=== PATIENT | female | born 1970 | race American Indian/Alaskan Native ===

== ENCOUNTER 2020-02-01 06:23 | Emergency (ER) | payer SELFPAY ==
--- NOTE | 2020-02-01 08:45 | Emergency Department Report ---
Chief Complaint: Dental/Oral Stated Complaint: ABSCESS IN MY JAW Time Seen by Provider: 02/01/20 08:30 - HPI History of Present Illness: The patient is a 49-year-old male who presents to ED complaining of 10/10 pain in the right side of his mouth x 2 days . Patient states that the pain started 5 days ago and has increased in severity over the last 2-3 days. The pain is exacerbated by eating and opening of the mouth. Patient states that swelling noted yesterday and pain is gotten worse Patient states that it radiates towards ear. Patient describes pain a throbbing, pressure-like sensation. Patient states otherwise well and has no other complaints. Patient has had no fevers and no chills. No chest pain, no shortness of breath. No abdominal pain. No shortness of breath or recent trauma to the face. - ROS Review of Systems: As noted in HPI - Exam Physical Exam: GENERAL: Alert and oriented x3, no apparent distress, Normal Gait, atraumatic. EARS: symetrical, atraumatic, non tender, ear canal clear and moderate cerumen, tympanic membrance non inflamed. gross auditory nml bilaterally. MOUTH:Mouth is well hydrated and without lesions. Tonsils nonerythematous or swollen, Uvula midline, Tongue not elevated. Mucous membranes are moist. Posterior pharynx clear, no exudate or lesions. Patent airways. Right lower jaw swelling, tender to palpation. Gingival enlargement and tenderness to tooth #29 NECK: Supple. Non edematous. No lymphadenopathy or thyromegaly. No C-spine tenderness SKIN: Warm and dry, No lesions, No ulceration or induration present. MSE screening note: Focused history and physical exam performed. Due to findings the following was ordered: ED Medical Decision Making - Medical Decision Making 31-year-old female who presents with left-sided Facial pain secondary to odontogenic abscess to the right ED course: Odontogenic infection versus ear infection. Based upon history and physical examination, pain is a result of an infection of tooth number 29 and that the pain Pt feels on the right side of his face and towards the ear is referred pain from this infectious process. Pt has no evidence of acute impending airway compromise. At this point, patient will be discharged home on some antibiotics and pain trial, she will do well with an outpatient course of antibiotics. Follow up with the Dental Clinic as referred Vital signs are normal patient is in no acute distress. Pt had an effect uneventful ED stay ED Disposition for MSE Clinical Impression: Dental abscess, Pain, dental Disposition: TO HOME OR SELFCARE Is pt being admited?: No Does the pt Need Aspirin: No Condition: Stable Instructions: Dental Abscess (ED), Toothache (ED) Additional Instructions: Make sure to follow up with the dentist as discussed. Take all your medications as you've been prescribed. If you have any worsening symptoms or develop new symptoms please return to ED immediately. Prescriptions: Clindamycin [Clindamycin CAP] 300 mg PO Q8H 7 Days #21 cap Ibuprofen [Motrin 800 MG tab] 800 mg PO Q8HR PRN #30 tablet PRN Reason: Pain Referrals: PRIMARY CARE, [Primary Care Provider] - 3-5 Days [facility] [Outside] - 3-5 Days [facility] [Outside] - 3-5 Days Forms: Work/School Release Form(ED) Time of Disposition: 09:02
[2020-02-01 09:26] VITALS: BP 219/97
== END 2020-02-01 09:25 | disposition home or self-care (01) ==
LOC: ED 06:23
DX: K04.7 Periapical abscess without sinus (principal)
CPT/HCPCS: 99282

== ENCOUNTER 2020-11-18 15:46 | Emergency (ER) | payer SELFPAY ==
[2020-11-18 16:37] VITALS: BP 198/97
--- NOTE | 2020-11-18 19:09 | Emergency Department Report ---
Blank Doc - Documentation Documentation: 50-year-old female that presents with RLQ pain. This initial assessment/diagnostic orders/clinical plan/treatment(s) is/are subject to change based on patient's health status, clinical progression and re- assessment by fellow clinical providers in the ED. Further treatment and workup at subsequent clinical providers discretion. Patient/guardians urged not to elope from the ED as their condition may be serious if not clinically assessed and managed. Initial orders include: 1- Patient sent to [facility] for further evaluation and treatment 2- labs 3- UA
== END 2020-11-19 01:37 ==
LOC: ED 15:46
DX: R10.9 Unspecified abdominal pain (principal); Z53.21 Procedure and treatment not carried out due to patient leaving prior to being seen by health care provider

== ENCOUNTER 2020-11-20 00:56 | Inpatient (IN) | payer OTHER ==
[2020-11-20] MEDS ORDERED: ONDANSETRON 4 MG ODT TAB ONE ×2 (01:48→03:21)
[2020-11-20] MEDS ORDERED: ONDANSETRON 4 MG ODT TAB PO ONE (03:50)
[2020-11-20 05:25] LABS: Hemoglobin 14.2 gm/dl (10.1-14.3)
[2020-11-20 05:27] LABS: BUN/Creatinine Ratio 13; Blood Urea Nitrogen 9 mg/dL (7-17); Calcium 10.1 mg/dL (8.4-10.2); Hemolysis Index 2
[2020-11-20 05:28] LABS: Hematocrit 41.1 % (30.3-42.9); Mean Corpuscular HGB Conc 35 % (30-34); Mean Corpuscular Volume 90 fl (79-97); Platelet Count 429 K/mm3 (140-440); Red Blood Count 4.55 M/mm3 (3.65-5.03); Red Cell Distribution Width 15.4 % (13.2-15.2)
[2020-11-20 06:23] LABS: Ovalocytes Rare; Platelet Estimate Consistent w Auto; Total Cells Counted 100
[2020-11-20] MEDS ORDERED: SODIUM CHLORIDE 0.9% 1000 ML 1,000 ML IV ONE ×2 (10:48→14:44)
--- NOTE | 2020-11-20 10:52 | Emergency Department Report ---
ED Abdominal Pain HPI - General Chief Complaint: Nausea/Vomiting/Diarrhea Stated Complaint: FOOD POISONING/VOMITING Time Seen by Provider: 11/20/20 10:47 Source: patient Mode of arrival: Ambulatory Limitations: No Limitations - History of Present Illness Initial Comments: Patient is a 42-year-old female presents emergency room complaints of generalized abdominal pain that began 2 days ago. She has associated nausea vomiting and is unable to tolerate p.o. intake. She states she had a normal bowel movement 2 days ago. She denies any diarrhea, hematochezia, hematemesis, urinary symptoms. She believes that she may have eaten something bad but no one else is sick around her. She denies any past medical history. She states she has a past abdominal: Surgical history of tubal ligation. Last menstrual cycle 10/19/2020. - Related Data Previous Rx's Medication Instructions Recorded Last Taken Type Clindamycin [Clindamycin CAP] 300 mg PO Q8H 7 Days #21 cap 02/01/20 Unknown Rx Ibuprofen [Motrin 800 MG tab] 800 mg PO Q8HR PRN #30 tablet 02/01/20 Unknown Rx Allergies Allergy/AdvReac Type Severity Reaction Status Date / Time No Known Allergies Allergy Verified 02/16/16 22:05 ED Review of Systems ROS: Stated complaint: FOOD POISONING/VOMITING Other details as noted in HPI Comment: All other systems reviewed and negative ED Past Medical Hx - Past Medical History Previous Medical History?: No - Surgical History Past Surgical History?: Yes Additional Surgical History: tubal ligation - Social History Smoking Status: Current Every Day Smoker Substance Use Type: None - Medications Home Medications: Home Medications Medication Instructions Recorded Confirmed Last Taken Type Clindamycin [Clindamycin CAP] 300 mg PO Q8H 7 Days #21 cap 02/01/20 Unknown Rx Ibuprofen [Motrin 800 MG tab] 800 mg PO Q8HR PRN #30 tablet 02/01/20 Unknown Rx ED Physical Exam - General Limitations: No Limitations General appearance: alert, in no apparent distress - Head Head exam: Present: atraumatic, normocephalic - Eye Eye exam: Present: normal appearance - ENT ENT exam: Present: mucous membranes moist - Respiratory Respiratory exam: Present: normal lung sounds bilaterally. Absent: respiratory distress, wheezes, rales, rhonchi, stridor, chest wall tenderness, accessory muscle use, decreased breath sounds, prolonged expiratory - Cardiovascular Cardiovascular Exam: Present: normal rhythm, tachycardia (mildly), normal heart sounds. Absent: systolic murmur, diastolic murmur, rubs, gallop - GI/Abdominal GI/Abdominal exam: Present: soft, tenderness (generalized), normal bowel sounds. Absent: distended, guarding, rebound, rigid - Neurological Exam Neurological exam: Present: alert, oriented X3 - Psychiatric Psychiatric exam: Present: normal affect, normal mood - Skin Skin exam: Present: warm, dry, intact ED Course Vital Signs 11/20/20 11/20/20 11/20/20 03:29 15:11 16:51 Temperature 98.5 F 98.6 F Pulse Rate 106 H 124 H 119 H Respiratory 18 18 Rate Blood Pressure 122/74 199/87 Blood Pressure 233/94 [Right] O2 Sat by Pulse 97 96 Oximetry - Consultations Consultation #1: 11/20/[address] Gross, ER attending who advised to order CBC and lactic acid and to repeat patient's vitals On repeat her white count has increased and she is still tachycardic, Dr. Gross, ER attending advises admission 11/20/20 15:[address] Bay, hospitalist who will accept and resume care of patient, advised to bridge to [facility] ED Medical Decision Making - Lab Data Result diagrams: 11/20/20 14:27 11/20/20 04:32 Lab Results 11/20/20 11/20/20 11/20/20 Range/Units 04:32 04:32 04:32 WBC 22.8 H (4.5-11.0) K/mm3 RBC 4.55 (3.65-5.03) M/mm3 Hgb 14.2 (10.1-14.3) gm/dl Hct 41.1 (30.3-42.9) % MCV 90 (79-97) fl MCH 31 (28-32) pg MCHC 35 H (30-34) % RDW 15.4 H (13.2-15.2) % Plt Count 429 (140-440) K/mm3 Add Manual Diff Complete Total Counted 100 Seg Neuts % (Manual) 88.0 H (40.0-70.0) % Lymphocytes % (Manual) 6.0 L (13.4-35.0) % Monocytes % (Manual) 6.0 (0.0-7.3) % Nucleated RBC % Not Reportable Seg Neutrophils # Man 20.1 H (1.8-7.7) K/mm3 Band Neutrophils # 0.0 K/mm3 Lymphocytes # (Manual) 1.4 (1.2-5.4) K/mm3 Abs React Lymphs (Man) 0.0 K/mm3 Monocytes # (Manual) 1.4 H (0.0-0.8) K/mm3 Eosinophils # (Manual) 0.0 (0.0-0.4) K/mm3 Basophils # (Manual) 0.0 (0.0-0.1) K/mm3 Metamyelocytes # 0.0 K/mm3 Myelocytes # 0.0 K/mm3 Promyelocytes # 0.0 K/mm3 Blast Cells # 0.0 K/mm3 WBC Morphology Not Reportable Hypersegmented Neuts Not Reportable Hyposegmented Neuts Not Reportable Hypogranular Neuts Not Reportable Smudge Cells Not Reportable Toxic Granulation Not Reportable Toxic Vacuolation Not Reportable Dohle Bodies Not Reportable Pelger-Huet Anomaly Not Reportable Percy Rods Not Reportable Platelet Estimate Consistent w auto Clumped Platelets Not Reportable Plt Clumps, EDTA Not Reportable Large Platelets Not Reportable Giant Platelets Not Reportable Platelet Satelliting Not Reportable Plt Morphology Comment Not Reportable RBC Morphology Not Reportable Dimorphic RBCs Not Reportable Polychromasia Not Reportable Hypochromasia Not Reportable Poikilocytosis Not Reportable Anisocytosis Not Reportable Microcytosis Not Reportable Macrocytosis Not Reportable Spherocytes Not Reportable Pappenheimer Bodies Not Reportable Sickle Cells Not Reportable Target Cells Not Reportable Tear Drop Cells Not Reportable Ovalocytes Rare Helmet Cells Not Reportable Child-[place] Bodies Not Reportable [place] Rings Not Reportable Charlene Cells Not Reportable Bite Cells Not Reportable Crenated Cell Not Reportable Elliptocytes Not Reportable Acanthocytes (Spur) Not Reportable Rouleaux Not Reportable Hemoglobin C Crystals Not Reportable Schistocytes Not Reportable Malaria parasites Not Reportable Raudel Bodies Not Reportable Hem Pathologist Commnt No Sodium 137 (137-145) mmol/L Potassium 3.2 L (3.6-5.0) mmol/L Chloride 98.7 (98-107) mmol/L Carbon Dioxide 23 (22-30) mmol/L Anion Gap 19 mmol/L BUN 9 (7-17) mg/dL Creatinine 0.7 (0.6-1.2) mg/dL Estimated GFR > 60 ml/min BUN/Creatinine Ratio 13 % Glucose 171 H (65-100) mg/dL Lactic Acid (0.7-2.0) mmol/L Calcium 10.1 (8.4-10.2) mg/dL Total Bilirubin (0.1-1.2) mg/dL Direct Bilirubin (0-0.2) mg/dL Indirect Bilirubin mg/dL AST (5-40) units/L ALT (7-56) units/L Alkaline Phosphatase (35-129) units/L Total Protein (6.3-8.2) g/dL Albumin (3.9-5) g/dL Albumin/Globulin Ratio % Lipase (13-60) units/L HCG, Qual Negative (Negative) 11/20/20 11/20/20 11/20/20 Range/Units 11:05 14:27 14:27 WBC 26.0 H (4.5-11.0) K/mm3 RBC 4.76 (3.65-5.03) M/mm3 Hgb 14.5 H (10.1-14.3) gm/dl Hct 43.5 H (30.3-42.9) % MCV 91 (79-97) fl MCH 30 (28-32) pg MCHC 33 (30-34) % RDW 15.3 H (13.2-15.2) % Plt Count 367 (140-440) K/mm3 Add Manual Diff Total Counted Seg Neuts % (Manual) (40.0-70.0) % Lymphocytes % (Manual) (13.4-35.0) % Monocytes % (Manual) (0.0-7.3) % Nucleated RBC % Seg Neutrophils # Man (1.8-7.7) K/mm3 Band Neutrophils # K/mm3 Lymphocytes # (Manual) (1.2-5.4) K/mm3 Abs React Lymphs (Man) K/mm3 Monocytes # (Manual) (0.0-0.8) K/mm3 Eosinophils # (Manual) (0.0-0.4) K/mm3 Basophils # (Manual) (0.0-0.1) K/mm3 Metamyelocytes # K/mm3 Myelocytes # K/mm3 Promyelocytes # K/mm3 Blast Cells # K/mm3 WBC Morphology Hypersegmented Neuts Hyposegmented Neuts Hypogranular Neuts Smudge Cells Toxic Granulation Toxic Vacuolation Dohle Bodies Pelger-Huet Anomaly Percy Rods Platelet Estimate Clumped Platelets Plt Clumps, EDTA Large Platelets Giant Platelets Platelet Satelliting Plt Morphology Comment RBC Morphology Dimorphic RBCs Polychromasia Hypochromasia Poikilocytosis Anisocytosis Microcytosis Macrocytosis Spherocytes Pappenheimer Bodies Sickle Cells Target Cells Tear Drop Cells Ovalocytes Helmet Cells Child-Plaqu[place] Bodies [place] Rings Charlene Cells Bite Cells Crenated Cell Elliptocytes Acanthocytes (Spur) Rouleaux Hemoglobin C Crystals Schistocytes Malaria parasites Raudel Bodies Hem Pathologist Commnt Sodium (137-145) mmol/L Potassium (3.6-5.0) mmol/L Chloride (98-107) mmol/L Carbon Dioxide (22-30) mmol/L Anion Gap mmol/L BUN (7-17) mg/dL Creatinine (0.6-1.2) mg/dL Estimated GFR ml/min BUN/Creatinine Ratio % Glucose (65-100) mg/dL Lactic Acid 1.30 (0.7-2.0) mmol/L Calcium (8.4-10.2) mg/dL Total Bilirubin 0.60 (0.1-1.2) mg/dL Direct Bilirubin < 0.2 (0-0.2) mg/dL Indirect Bilirubin 0.4 mg/dL AST 13 (5-40) units/L ALT 9 (7-56) units/L Alkaline Phosphatase 105 (35-129) units/L Total Protein 9.4 H (6.3-8.2) g/dL Albumin 4.1 (3.9-5) g/dL Albumin/Globulin Ratio 0.8 % Lipase 38 (13-60) units/L HCG, Qual (Negative) Vital Signs 11/20/20 11/20/20 11/20/20 03:29 15:11 16:51 Temperature 98.5 F 98.6 F Pulse Rate 106 H 124 H 119 H Respiratory 18 18 Rate Blood Pressure 122/74 199/87 Blood Pressure 233/94 [Right] O2 Sat by Pulse 97 96 Oximetry - Radiology Data Radiology results: report reviewed CT abdomen pelvis with IV contrast Impression: Question very early right pyelonephritis. These findings are very subtle. Correlate imaging Radiologist Rodri Hamm Jr, MD - Medical Decision Making Patient is a 42-year-old female presents emergency room complaints of generalized abdominal pain that began 2 days ago. She has associated nausea vomiting and is unable to tolerate p.o. intake. She states she had a normal bowel movement 2 days ago. She denies any diarrhea, hematochezia, hematemesis, urinary symptoms. She believes that she may have eaten something bad but no one else is sick around her. She denies any past medical history. She states she has a past abdominal: Surgical history of tubal ligation. Last menstrual cycle 10/19/2020. Initial triage vitals with mild tachycardia, otherwise stable. On exam patient has generalized abdominal tenderness palpation, no guarding, rebound, no rigidity, normal bowel sounds, no peritoneal signs. Lab significant for elevated white blood cell count at 22,000 and hypokalemia at 3.2. UA shows evidence of significant UTI. CT abdomen pelvis with IV contrast Impression: Question very early right pyelonephritis. These findings are very subtle. Correlate imaging. Patient given 2 L of IV fluids, K-Dur, morphine, Zofran, ceftriaxone. Spoke with Dr. Gross, ER attending who advised to order CBC and lactic acid and to repeat patient's vitals. On repeat her white count has increased and she is still tachycardic, Dr. Gross, ER attending advises admission. Patient is also significantly hypertensive, given labetalol IV. spoke with Dr. Bay, hospitalist who will accept and resume care of patient, advised to bridge to [facility] - Differential Diagnosis Colitis, diverticulitis, UTI, pyelonephritis, obstruction, mass, appendicit Critical care attestation.: If time is entered above; I have spent that time in minutes in the direct care of this critically ill patient, excluding procedure time. ED Disposition Clinical Impression: Pyelonephritis, SIRS (systemic inflammatory response syndrome), Hypokalemia Abdominal pain Qualifiers: Abdominal location: generalized Qualified Code(s): R10.84 - Generalized abdominal pain Nausea and vomiting Qualifiers: Vomiting type: unspecified Vomiting Intractability: unspecified Qualified Code(s): R11.2 - Nausea with vomiting, unspecified Uterine fibroid Qualifiers: Uterine leiomyoma location: unspecified location Qualified Code(s): D25.9 - Leiomyoma of uterus, unspecified HTN (hypertension) Qualifiers: Hypertension type: unspecified Qualified Code(s): I10 - Essential (primary) hypertension Disposition: 09 OP ADMIT IP TO THIS HOSP Is pt being admited?: Yes Does the pt Need Aspirin: No Condition: Fair Time of Disposition: 15:45
[2020-11-20] MEDS: MORPHINE 4 MG/1 ML INJ IV ONE ×2 (11:00→11:01)
[2020-11-20] MEDS: ONDANSETRON 4 MG/2 ML INJ IV ONE ×2 (11:01→22:58)
[2020-11-20 11:48] LABS: Alanine Aminotransferase 9 units/L (7-56); Albumin 4.1 g/dL (3.9-5)
[2020-11-20 11:49] LABS: Bilirubin,Direct < 0.2 mg/dL (0-0.2)
--- NOTE | 2020-11-20 12:20 | Cat Scan Report ---
CT ABDOMEN AND PELVIS WITH CONTRAST HISTORY: generalized abd pain, n/v, leukocytosis COMPARISON: None. TECHNIQUE: Axial CT images were obtained through the abdomen and pelvis after 100 cc of IV contrast. Sagittal and coronal reformatted images. All CT scans at this location are performed using CT dose re duction for ALARA by means of automated exposure control. FINDINGS: CT ABDOMEN: Lung Bases: Clear. Liver: The liver appears mildly enlarged but no evidence for focal lesion, advanced parenchymal disea se or surface nodularity. Biliary: No significant abnormality. Spleen: No significant abnormality. Unenlarged. Pancreas: No significant abnormality. Adrenals: No significant abnormality. Kidneys: Both kidneys are normal size, contour and position. Very subtle small perfusion defects are suggested in the right kidney. This could indicate early pyelonephritis. No focal renal lesion, hydro nephrosis or perinephric fluid. Lymphatics: No lymphadenopathy. Vasculature: No significant abnormality. Bowel/Peritoneum: No significant abnormality. No free air. No free fluid. Normal appendix. CT PELVIS: : The uterus is mildly enlarged and lobular with multiple small fibroids. A 1.6 cm peripherally enh ancing cyst is identified in the left ovary. The right ovary is unremarkable. The bladder and distal ureters are within normal limits. Osseous Structures: There is been previous internal stabilization of the proximal right femur, correl ate with history. The remaining visualized bony structures are unremarkable. Additional Findings: None IMPRESSION: Question very early right pyelonephritis. These findings are very subtle. Correlate with the patient' s presentation. Mild hepatomegaly. Uterine fibroid disease. 1.6 cm left ovarian cyst. Signer Name: Rodri Hamm Jr, MD Signed: 11/20/2020 12:16 PM Workstation Name: [id number]
[2020-11-20] MEDS ORDERED: cefTRIAXone/NS 1 GM/50 ML 1 GM/50 ML BAG IV ONE (12:34)
[2020-11-20 12:56] LABS: Bacteria,Urine 1+ /HPF (Negative); Bilirubin,Urine NEG (Negative); Blood,Urine MOD (Negative); Color,Urine Yellow (Yellow); Mucus,Urine FEW /HPF; Protein,Urine >500 mg/dL (Negative); Urobilinogen,Urine < 2.0 mg/dL (<2.0); WBC,Urine > 182.0 /HPF (0.0-6.0)
[2020-11-20] MEDS ORDERED: POTASSIUM CHLORIDE ER 20 MEQ TAB PO ONE (13:12)
[2020-11-20 14:39] LABS: Hematocrit 43.5 % (30.3-42.9); Hemoglobin 14.5 gm/dl (10.1-14.3); Mean Corpuscular HGB Conc 33 % (30-34); Mean Corpuscular Volume 91 fl (79-97); Platelet Count 367 K/mm3 (140-440); Red Blood Count 4.76 M/mm3 (3.65-5.03); Red Cell Distribution Width 15.3 % (13.2-15.2)
[2020-11-20] MEDS ORDERED: ONDANSETRON 4 MG/2 ML INJ IV ONE (14:56)
[2020-11-20] MEDS ORDERED: ONDANSETRON 4 MG/2 ML INJ ONE (18:01)
[2020-11-20] MEDS: ONDANSETRON 4 MG/2 ML INJ IV PRN (18:13)
[2020-11-20] MEDS ORDERED: hydrALAZINE 20 MG/1 ML INJ IV ONE (22:41)
--- NOTE | 2020-11-21 00:35 | History and Physical Report ---
History of Present Illness Date of examination: 11/20/20 Date of admission: 11/20/20 15:46 Chief complaint: Vomiting for 2 days History of present illness: 42-year-old female with no significant past medical history has been having right flank pain and vomiting for 2 days. Unable to tolerate anything orally. Patient had a normal bowel movement 2 days ago. No diarrhea. No hematochezia. No hematemesis. Pain in the abdomen in the right flank is about 6 on a scale of 1-10 which is intermittent in nature. Low-grade fever present. No exposure to coronavirus. - Past Medical History Previous Medical History?: No - Surgical History Past Surgical History?: Yes Additional Surgical History: tubal ligation - Social History Smoking Status: Current Every Day Smoker Substance Use Type: None - Medications Home Medications: Home Medications Medication Instructions Recorded Confirmed Last Taken Type Clindamycin [Clindamycin CAP] 300 mg PO Q8H 7 Days #21 cap 02/01/20 Unknown Rx Ibuprofen [Motrin 800 MG tab] 800 mg PO Q8HR PRN #30 tablet 02/01/20 Unknown Rx Review of Systems ROS: Constitutional no weight loss or weight gain no fever or chills HEENT no sore throat no post nasal drip no diplopia Neck no neck stiffness no lymph gland enlargement Chest and lungs no shortness of breath cough or wheezing CVS no chest pain no diaphoresis no palpitations GI right flank pain with nausea and vomiting for 2 days. Persistent vomiting. Musculoskeletal system no muscle pains no joint pains [employer] no syncope no seizures Skin no rash no itching Psychiatric no depression no homicidal or suicidal tendencies Hematologic no lymphedema or bruising Endocrine no polydipsia no polyuria no cold intolerance no heat intolerance Medications and Allergies Allergies Allergy/AdvReac Type Severity Reaction Status Date / Time No Known Allergies Allergy Verified 02/16/16 22:05 Home Medications Medication Instructions Recorded Confirmed Last Taken Type Clindamycin [Clindamycin CAP] 300 mg PO Q8H 7 Days #21 cap 02/01/20 Unknown Rx Ibuprofen [Motrin 800 MG tab] 800 mg PO Q8HR PRN #30 tablet 02/01/20 Unknown Rx Active Meds: Active Medications Ceftriaxone Sodium (Rocephin/Ns 2 Gm/100 Ml) 2 gm in 100 mls @ 200 mls/hr IV Q24H [facility]; Protocol Ondansetron HCl (Ondansetron 4 Mg/2 Ml Inj) 4 mg IV Q8H PRN PRN Reason: Nausea And Vomiting Last Admin: 11/20/20 18:13 Dose: 4 mg Documented by: Exam - Constitutional Vitals: Temp Pulse Resp BP Pulse Ox 100.4 F H 129 H 14 161/86 94 11/21/20 00:30 11/21/20 00:30 11/21/20 00:30 11/21/20 00:30 11/21/20 00:30 General appearance: Present: no acute distress, well-nourished - EENT Eyes: Present: PERRL ENT: hearing intact, clear oral mucosa - Neck Neck: Present: supple, normal ROM - Respiratory Respiratory effort: normal Respiratory: bilateral: CTA - Cardiovascular Rhythm: regular Heart Sounds: Present: S1 & S2. Absent: rub, click - Extremities Extremities: pulses symmetrical, No edema Peripheral Pulses: within normal limits - Abdominal General gastrointestinal: Present: soft, non-tender, tender, non-distended, normal bowel sounds Localized gastrointestinal: tender: RLQ (Right flank pain) Female genitourinary: Present: normal - Integumentary Integumentary: Present: clear, warm, dry - Musculoskeletal Musculoskeletal: gait normal, strength equal bilaterally - Psychiatric Psychiatric: appropriate mood/affect, intact judgment & insight - Neurologic Neurologic: CNII-XII intact, moves all extremities Results - Labs CBC & Chem 7: 11/20/20 14:27 11/20/20 04:32 Labs: Laboratory Last Values WBC 26.0 K/mm3 (4.5-11.0) H 11/20/20 14:27 RBC 4.76 M/mm3 (3.65-5.03) 11/20/20 14:27 Hgb 14.5 gm/dl (10.1-14.3) H 11/20/20 14:27 Hct 43.5 % (30.3-42.9) H 11/20/20 14:27 MCV 91 fl (79-97) 11/20/20 14:27 MCH 30 pg (28-32) 11/20/20 14:27 MCHC 33 % (30-34) 11/20/20 14:27 RDW 15.3 % (13.2-15.2) H 11/20/20 14:27 Plt Count 367 K/mm3 (140-440) 11/20/20 14:27 Add Manual Diff Complete 11/20/20 04:32 Total Counted 100 11/20/20 04:32 Seg Neuts % (Manual) 88.0 % (40.0-70.0) H 11/20/20 04:32 Lymphocytes % (Manual) 6.0 % (13.4-35.0) L 11/20/20 04:32 Monocytes % (Manual) 6.0 % (0.0-7.3) 11/20/20 04:32 Nucleated RBC % Not Reportable 11/20/20 04:32 Seg Neutrophils # Man 20.1 K/mm3 (1.8-7.7) H 11/20/20 04:32 Band Neutrophils # 0.0 K/mm3 11/20/20 04:32 Lymphocytes # (Manual) 1.4 K/mm3 (1.2-5.4) 11/20/20 04:32 Abs React Lymphs (Man) 0.0 K/mm3 11/20/20 04:32 Monocytes # (Manual) 1.4 K/mm3 (0.0-0.8) H 11/20/20 04:32 Eosinophils # (Manual) 0.0 K/mm3 (0.0-0.4) 11/20/20 04:32 Basophils # (Manual) 0.0 K/mm3 (0.0-0.1) 11/20/20 04:32 Metamyelocytes # 0.0 K/mm3 11/20/20 04:32 Myelocytes # 0.0 K/mm3 11/20/20 04:32 Promyelocytes # 0.0 K/mm3 11/20/20 04:32 Blast Cells # 0.0 K/mm3 11/20/20 04:32 WBC Morphology Not Reportable 11/20/20 04:32 Hypersegmented Neuts Not Reportable 11/20/20 04:32 Hyposegmented Neuts Not Reportable 11/20/20 04:32 Hypogranular Neuts Not Reportable 11/20/20 04:32 Smudge Cells Not Reportable 11/20/20 04:32 Toxic Granulation Not Reportable 11/20/20 04:32 Toxic Vacuolation Not Reportable 11/20/20 04:32 Dohle Bodies Not Reportable 11/20/20 04:32 Pelger-Huet Anomaly Not Reportable 11/20/20 04:32 Percy Rods Not Reportable 11/20/20 04:32 Platelet Estimate Consistent w auto 11/20/20 04:32 Clumped Platelets Not Reportable 11/20/20 04:32 Plt Clumps, EDTA Not Reportable 11/20/20 04:32 Large Platelets Not Reportable 11/20/20 04:32 Giant Platelets Not Reportable 11/20/20 04:32 Platelet Satelliting Not Reportable 11/20/20 04:32 Plt Morphology Comment Not Reportable 11/20/20 04:32 RBC Morphology Not Reportable 11/20/20 04:32 Dimorphic RBCs Not Reportable 11/20/20 04:32 Polychromasia Not Reportable 11/20/20 04:32 Hypochromasia Not Reportable 11/20/20 04:32 Poikilocytosis Not Reportable 11/20/20 04:32 Anisocytosis Not Reportable 11/20/20 04:32 Microcytosis Not Reportable 11/20/20 04:32 Macrocytosis Not Reportable 11/20/20 04:32 Spherocytes Not Reportable 11/20/20 04:32 Pappenheimer Bodies Not Reportable 11/20/20 04:32 Sickle Cells Not Reportable 11/20/20 04:32 Target Cells Not Reportable 11/20/20 04:32 Tear Drop Cells Not Reportable 11/20/20 04:32 Ovalocytes Rare 11/20/20 04:32 Helmet Cells Not Reportable 11/20/20 04:32 Child[place] Bodies Not Reportable 11/20/20 04:32 [place] Rings Not Reportable 11/20/20 04:32 Charlene Cells Not Reportable 11/20/20 04:32 Bite Cells Not Reportable 11/20/20 04:32 Crenated Cell Not Reportable 11/20/20 04:32 Elliptocytes Not Reportable 11/20/20 04:32 Acanthocytes (Spur) Not Reportable 11/20/20 04:32 Rouleaux Not Reportable 11/20/20 04:32 Hemoglobin C Crystals Not Reportable 11/20/20 04:32 Schistocytes Not Reportable 11/20/20 04:32 Malaria parasites Not Reportable 11/20/20 04:32 Raudel Bodies Not Reportable 11/20/20 04:32 Hem Pathologist Commnt No 11/20/20 04:32 Sodium 137 mmol/L (137-145) 11/20/20 04:32 Potassium 3.2 mmol/L (3.6-5.0) L 11/20/20 04:32 Chloride 98.7 mmol/L (98-107) 11/20/20 04:32 Carbon Dioxide 23 mmol/L (22-30) 11/20/20 04:32 Anion Gap 19 mmol/L 11/20/20 04:32 BUN 9 mg/dL (7-17) 11/20/20 04:32 Creatinine 0.7 mg/dL (0.6-1.2) 11/20/20 04:32 Estimated GFR > 60 ml/min 11/20/20 04:32 BUN/Creatinine Ratio 13 % 11/20/20 04:32 Glucose 171 mg/dL (65-100) H 11/20/20 04:32 Lactic Acid 1.30 mmol/L (0.7-2.0) 11/20/20 14:27 Calcium 10.1 mg/dL (8.4-10.2) 11/20/20 04:32 Total Bilirubin 0.60 mg/dL (0.1-1.2) 11/20/20 11:05 Direct Bilirubin < 0.2 mg/dL (0-0.2) 11/20/20 11:05 Indirect Bilirubin 0.4 mg/dL 11/20/20 11:05 AST 13 units/L (5-40) 11/20/20 11:05 ALT 9 units/L (7-56) 11/20/20 11:05 Alkaline Phosphatase 105 units/L (35-129) 11/20/20 11:05 Total Protein 9.4 g/dL (6.3-8.2) H 11/20/20 11:05 Albumin 4.1 g/dL (3.9-5) 11/20/20 11:05 Albumin/Globulin Ratio 0.8 % 11/20/20 11:05 Lipase 38 units/L (13-60) 11/20/20 11:05 HCG, Qual Negative (Negative) 11/20/20 04:32 Urine Color Yellow (Yellow) 11/20/20 Unknown Urine Turbidity Slightly-cloudy (Clear) 11/20/20 Unknown Urine pH 6.0 (5.0-7.0) 11/20/20 Unknown Ur Specific [place] 1.050 (1.003-1.030) H 11/20/20 Unknown Urine Protein >500 mg/dL (Negative) 11/20/20 Unknown Urine Glucose (UA) Neg mg/dL (Negative) 11/20/20 Unknown Urine Ketones Neg mg/dL (Negative) 11/20/20 Unknown Urine Blood Mod (Negative) 11/20/20 Unknown Urine Nitrite Pos (Negative) 11/20/20 Unknown Urine Bilirubin Neg (Negative) 11/20/20 Unknown Urine Urobilinogen < 2.0 mg/dL (<2.0) 11/20/20 Unknown Ur Leukocyte Esterase Lg (Negative) 11/20/20 Unknown Urine WBC (Auto) > 182.0 /HPF (0.0-6.0) H 11/20/20 Unknown Urine RBC (Auto) 29.0 /HPF (0.0-6.0) 11/20/20 Unknown U Epithel Cells (Auto) 3.0 /HPF (0-13.0) 11/20/20 Unknown Urine Bacteria (Auto) 1+ /HPF (Negative) 11/20/20 Unknown Urine Mucus Few /HPF 11/20/20 Unknown Microbiology: Microbiology 11/20/20 16:29 Peripheral/Venous Blood Culture - Preliminary Culture in Progress 11/20/20 16:20 Peripheral/Venous Blood Culture - Preliminary Culture in Progress - Imaging and Cardiology US - abdomen: report reviewed Imaging and Cardiology: CT of the abdomen Early right pyelonephritis Mariscal/IV: IV Catheter Type [Right Hand] INT / Saline Lock IV Catheter Type [Left Hand] INT / Saline Lock Assessment and Plan Advance Directives: Yes (+) - Patient Problems (1) Sepsis Current Visit: Yes Status: Acute Qualifiers: Severe sepsis shock status: without septic shock Plan to address problem: Patient has leukocytosis and fever and vomiting (2) Pyelonephritis Current Visit: Yes Status: Acute Plan to address problem: Patient initiated on IV Rocephin pending urine cultures and blood cultures IV Rocephin 2 g IV piggyback every 24 (3) Hypokalemia Current Visit: Yes Status: Acute Plan to address problem: Supplemented (4) DVT prophylaxis Current Visit: Yes Status: Acute Plan to address problem: On heparin and GI prophylaxis
[2020-11-21] MEDS ORDERED: ACETAMINOPHEN 325 MG TAB PO PRN ×2 (00:39→00:46)
[2020-11-21] MEDS: METOCLOPRAMIDE 10 MG/2 ML INJ IV PRN ×3 (00:46→20:11)
[2020-11-21] MEDS ORDERED: HYDROmorphone 1 MG/1 ML INJ IV PRN (00:46)
[2020-11-21] MEDS ORDERED: METOCLOPRAMIDE 10 MG/2 ML INJ IV PRN (00:46)
[2020-11-21] MEDS ORDERED: ONDANSETRON 4 MG/2 ML INJ IV PRN (00:46)
[2020-11-21] MEDS ORDERED: PANTOPRAZOLE 40 MG INJ IV SCH (01:00)
[2020-11-21] MEDS: VALSARTAN 160MG TAB PO SCH ×3 (03:44→23:33)
[2020-11-21] MEDS: FAMOTIDINE 20 MG/2 ML INJ IV SCH ×3 (03:44→23:34)
[2020-11-21] MEDS: D5W/0.45% NACL/KCL 20 MEQ 20 MEQ/1,000 ML BAG IV SCH ×2 (03:45→11:24)
[2020-11-21] MEDS: ONDANSETRON 4 MG/2 ML INJ IV PRN (07:30)
[2020-11-21] MEDS: oxyCODONE /ACETAMINOPHEN 5-325MG TAB PO PRN ×3 (07:34→23:39)
--- NOTE | 2020-11-21 11:20 | Progress Note ---
Assessment and Plan Assessment and plan: --Sepsis Current Visit: Yes Status: Acute Qualifiers: Severe sepsis shock status: without septic shock Plan to address problem: Meets sepsis criteria with tachycardia, leukocytosis and UTI Started on IV antibiotics Blood culture and urine culture sent Continue to monitor vitals closely --Pyelonephritis Current Visit: Yes Status: Acute Plan to address problem: Continue IV ceftriaxone Awaiting urine cultures ---Gastroenteritis Probably reactionary from pyelonephritis Continue IV hydration Diet ordered -- Hypokalemia Current Visit: Yes Status: Acute Plan to address problem: Supplemented -- DVT prophylaxis Current Visit: Yes Status: Acute Plan to address problem: On heparin and GI prophylaxis History Interval history: Patient seen and examined at bedside this morning She feels better. On IV antibiotics for sepsis secondary to pyelonephritis Labs reviewed-still has leukocytosis. Awaiting a.m. labs Hospitalist Physical - Physical exam Narrative exam: VITAL SIGNS: Reviewed. GENERAL: Awake HEAD: No signs of head trauma. EYES: Pupils are equal. Extraocular motions intact. MOUTH: Oropharynx is normal. NECK: No adenopathy, no JVD. CHEST: Chest with diminished breath sounds bilaterally. No wheezes, rales, or rhonchi. CARDIAC: normal S1 and S2, without murmurs, gallops, or rubs. ABDOMEN: Soft, tender to palpation in the lower quadrants. rebound or guarding, and no masses palpated. Bowel Sounds normal. MUSCULOSKELETAL: No edema NEUROLOGIC EXAM: Alert and oriented x3. No focal neurologic deficits SKIN: No obvious lesions - Constitutional Vitals: Temp Pulse Resp BP Pulse Ox 98.8 F 115 H 18 151/75 96 11/21/20 08:58 11/21/20 08:58 11/21/20 08:58 11/21/20 08:58 11/21/20 08:58 Results - Labs CBC & Chem 7: 11/20/20 14:27 11/20/20 04:32 Labs: Laboratory Last Values WBC 26.0 K/mm3 (4.5-11.0) H 11/20/20 14:27 RBC 4.76 M/mm3 (3.65-5.03) 11/20/20 14:27 Hgb 14.5 gm/dl (10.1-14.3) H 11/20/20 14:27 Hct 43.5 % (30.3-42.9) H 11/20/20 14:27 MCV 91 fl (79-97) 11/20/20 14:27 MCH 30 pg (28-32) 11/20/20 14:27 MCHC 33 % (30-34) 11/20/20 14:27 RDW 15.3 % (13.2-15.2) H 11/20/20 14:27 Plt Count 367 K/mm3 (140-440) 11/20/20 14:27 Add Manual Diff Complete 11/20/20 04:32 Total Counted 100 11/20/20 04:32 Seg Neuts % (Manual) 88.0 % (40.0-70.0) H 11/20/20 04:32 Lymphocytes % (Manual) 6.0 % (13.4-35.0) L 11/20/20 04:32 Monocytes % (Manual) 6.0 % (0.0-7.3) 11/20/20 04:32 Nucleated RBC % Not Reportable 11/20/20 04:32 Seg Neutrophils # Man 20.1 K/mm3 (1.8-7.7) H 11/20/20 04:32 Band Neutrophils # 0.0 K/mm3 11/20/20 04:32 Lymphocytes # (Manual) 1.4 K/mm3 (1.2-5.4) 11/20/20 04:32 Abs React Lymphs (Man) 0.0 K/mm3 11/20/20 04:32 Monocytes # (Manual) 1.4 K/mm3 (0.0-0.8) H 11/20/20 04:32 Eosinophils # (Manual) 0.0 K/mm3 (0.0-0.4) 11/20/20 04:32 Basophils # (Manual) 0.0 K/mm3 (0.0-0.1) 11/20/20 04:32 Metamyelocytes # 0.0 K/mm3 11/20/20 04:32 Myelocytes # 0.0 K/mm3 11/20/20 04:32 Promyelocytes # 0.0 K/mm3 11/20/20 04:32 Blast Cells # 0.0 K/mm3 11/20/20 04:32 WBC Morphology Not Reportable 11/20/20 04:32 Hypersegmented Neuts Not Reportable 11/20/20 04:32 Hyposegmented Neuts Not Reportable 11/20/20 04:32 Hypogranular Neuts Not Reportable 11/20/20 04:32 Smudge Cells Not Reportable 11/20/20 04:32 Toxic Granulation Not Reportable 11/20/20 04:32 Toxic Vacuolation Not Reportable 11/20/20 04:32 Dohle Bodies Not Reportable 11/20/20 04:32 Pelger-Huet Anomaly Not Reportable 11/20/20 04:32 Percy Rods Not Reportable 11/20/20 04:32 Platelet Estimate Consistent w auto 11/20/20 04:32 Clumped Platelets Not Reportable 11/20/20 04:32 Plt Clumps, EDTA Not Reportable 11/20/20 04:32 Large Platelets Not Reportable 11/20/20 04:32 Giant Platelets Not Reportable 11/20/20 04:32 Platelet Satelliting Not Reportable 11/20/20 04:32 Plt Morphology Comment Not Reportable 11/20/20 04:32 RBC Morphology Not Reportable 11/20/20 04:32 Dimorphic RBCs Not Reportable 11/20/20 04:32 Polychromasia Not Reportable 11/20/20 04:32 Hypochromasia Not Reportable 11/20/20 04:32 Poikilocytosis Not Reportable 11/20/20 04:32 Anisocytosis Not Reportable 11/20/20 04:32 Microcytosis Not Reportable 11/20/20 04:32 Macrocytosis Not Reportable 11/20/20 04:32 Spherocytes Not Reportable 11/20/20 04:32 Pappenheimer Bodies Not Reportable 11/20/20 04:32 Sickle Cells Not Reportable 11/20/20 04:32 Target Cells Not Reportable 11/20/20 04:32 Tear Drop Cells Not Reportable 11/20/20 04:32 Ovalocytes Rare 11/20/20 04:32 Helmet Cells Not Reportable 11/20/20 04:32 Child-[place] Bodies Not Reportable 11/20/20 04:32 [place] Rings Not Reportable 11/20/20 04:32 Charlene Cells Not Reportable 11/20/20 04:32 Bite Cells Not Reportable 11/20/20 04:32 Crenated Cell Not Reportable 11/20/20 04:32 Elliptocytes Not Reportable 11/20/20 04:32 Acanthocytes (Spur) Not Reportable 11/20/20 04:32 Rouleaux Not Reportable 11/20/20 04:32 Hemoglobin C Crystals Not Reportable 11/20/20 04:32 Schistocytes Not Reportable 11/20/20 04:32 Malaria parasites Not Reportable 11/20/20 04:32 Raudel Bodies Not Reportable 11/20/20 04:32 Hem Pathologist Commnt No 11/20/20 04:32 Sodium 137 mmol/L (137-145) 11/20/20 04:32 Potassium 3.2 mmol/L (3.6-5.0) L 11/20/20 04:32 Chloride 98.7 mmol/L (98-107) 11/20/20 04:32 Carbon Dioxide 23 mmol/L (22-30) 11/20/20 04:32 Anion Gap 19 mmol/L 11/20/20 04:32 BUN 9 mg/dL (7-17) 11/20/20 04:32 Creatinine 0.7 mg/dL (0.6-1.2) 11/20/20 04:32 Estimated GFR > 60 ml/min 11/20/20 04:32 BUN/Creatinine Ratio 13 % 11/20/20 04:32 Glucose 171 mg/dL (65-100) H 11/20/20 04:32 Lactic Acid 1.30 mmol/L (0.7-2.0) 11/20/20 14:27 Calcium 10.1 mg/dL (8.4-10.2) 11/20/20 04:32 Total Bilirubin 0.60 mg/dL (0.1-1.2) 11/20/20 11:05 Direct Bilirubin < 0.2 mg/dL (0-0.2) 11/20/20 11:05 Indirect Bilirubin 0.4 mg/dL 11/20/20 11:05 AST 13 units/L (5-40) 11/20/20 11:05 ALT 9 units/L (7-56) 11/20/20 11:05 Alkaline Phosphatase 105 units/L (35-129) 11/20/20 11:05 Total Protein 9.4 g/dL (6.3-8.2) H 11/20/20 11:05 Albumin 4.1 g/dL (3.9-5) 11/20/20 11:05 Albumin/Globulin Ratio 0.8 % 11/20/20 11:05 Lipase 38 units/L (13-60) 11/20/20 11:05 HCG, Qual Negative (Negative) 11/20/20 04:32 Urine Color Yellow (Yellow) 11/20/20 Unknown Urine Turbidity Slightly-cloudy (Clear) 11/20/20 Unknown Urine pH 6.0 (5.0-7.0) 11/20/20 Unknown Ur Specific [place] 1.050 (1.003-1.030) H 11/20/20 Unknown Urine Protein >500 mg/dL (Negative) 11/20/20 Unknown Urine Glucose (UA) Neg mg/dL (Negative) 11/20/20 Unknown Urine Ketones Neg mg/dL (Negative) 11/20/20 Unknown Urine Blood Mod (Negative) 11/20/20 Unknown Urine Nitrite Pos (Negative) 11/20/20 Unknown Urine Bilirubin Neg (Negative) 11/20/20 Unknown Urine Urobilinogen < 2.0 mg/dL (<2.0) 11/20/20 Unknown Ur Leukocyte Esterase Lg (Negative) 11/20/20 Unknown Urine WBC (Auto) > 182.0 /HPF (0.0-6.0) H 11/20/20 Unknown Urine RBC (Auto) 29.0 /HPF (0.0-6.0) 11/20/20 Unknown U Epithel Cells (Auto) 3.0 /HPF (0-13.0) 11/20/20 Unknown Urine Bacteria (Auto) 1+ /HPF (Negative) 11/20/20 Unknown Urine Mucus Few /HPF 11/20/20 Unknown Microbiology: Microbiology 11/20/20 16:29 Peripheral/Venous Blood Culture - Preliminary Culture in Progress 11/20/20 16:20 Peripheral/Venous Blood Culture - Preliminary Culture in Progress Mariscal/IV: Voiding Method Toilet IV Catheter Type [Right Hand] INT / Saline Lock IV Catheter Type [Left Hand] INT / Saline Lock Active Medications - Current Medications Current Medications: Generic Name Dose Route Start Last Admin Trade Name Freq PRN Reason Stop Dose Admin Acetaminophen 650 mg 11/21/20 00:46 Acetaminophen 325 Mg Tab PO Q4H PRN Pain MILD(1-3)/Fever >100.5/FERRARA Famotidine 20 mg 11/21/20 01:00 11/21/20 03:44 Famotidine 20 Mg/2 Ml Inj IV 20 mg BID VARSHA Administration Hydromorphone HCl 0.5 mg 11/21/20 00:46 Hydromorphone 1 Mg/1 Ml Inj IV Q3H PRN Pain , Severe (7-10) Ceftriaxone Sodium 2 gm in 100 mls @ 200 mls/hr 11/21/20 14:00 Rocephin/Ns 2 Gm/100 Ml IV Q24H VARSHA Protocol Potassium Chloride/Dextrose/Sod Cl 20 meq in 1,000 mls @ 100 mls/hr 11/21/20 01:00 11/21/20 03:45 D5w/0.45% Nacl/Kcl 20 Meq IV 100 mls/hr DIRECT VARSHA Administration Labetalol HCl 10 mg 11/21/20 00:53 Labetalol 20 Mg/4 Ml Inj IV Q3H PRN Blood Pressure Metoclopramide HCl 10 mg 11/21/20 00:29 11/21/20 00:46 Metoclopramide 10 Mg/2 Ml Inj IV 10 mg Q6H PRN Administration Nausea And Vomiting Ondansetron HCl 4 mg 11/20/20 18:01 11/21/20 07:30 Ondansetron 4 Mg/2 Ml Inj IV 4 mg Q8H PRN Administration Nausea And Vomiting Oxycodone/Acetaminophen 1 tab 11/21/20 00:46 11/21/20 07:34 Oxycodone /Acetaminophen 5-325mg Tab PO 1 tab Q6H PRN Administration Pain, Moderate (4-6) Sodium Chloride 10 ml 11/21/20 10:00 Sodium Chloride 0.9% 10 Ml Flush Syringe IV BID VARSHA Sodium Chloride 10 ml 11/21/20 00:46 Sodium Chloride 0.9% 10 Ml Flush Syringe IV PRN PRN LINE FLUSH Valsartan 160 mg 11/21/20 01:00 11/21/20 03:44 Valsartan 160mg Tab PO 160 mg BID VARSHA Administration
[2020-11-21] MEDS: cefTRIAXone/NS 2 GM/100 ML 2 GM/100 ML BAG IV SCH (13:43)
[2020-11-22 05:42] LABS: Basophils # (Auto) 0.1 K/mm3 (0.0-0.1); Basophils % (Auto) 0.5 % (0.0-1.8); Eosinophils # (Auto) 0.2 K/mm3 (0.0-0.4); Eosinophils % (Auto) 1.4 % (0.0-4.3); Hematocrit 35.7 % (30.3-42.9); Hemoglobin 11.9 gm/dl (10.1-14.3); Lymphocytes # (Auto) 2.9 K/mm3 (1.2-5.4); Lymphocytes % (Auto) 22.9 % (13.4-35.0); Mean Corpuscular HGB Conc 33 % (30-34); Mean Corpuscular Volume 91 fl (79-97); Monocytes # (Auto) 1.6 K/mm3 (0.0-0.8); Monocytes % (Auto) 12.5 % (0.0-7.3); Platelet Count 332 K/mm3 (140-440); Red Blood Count 3.95 M/mm3 (3.65-5.03); Red Cell Distribution Width 14.9 % (13.2-15.2)
[2020-11-22 06:01] LABS: Alanine Aminotransferase 12 units/L (7-56); Albumin 3.3 g/dL (3.9-5); Blood Urea Nitrogen 7 mg/dL (7-17); Calcium 8.9 mg/dL (8.4-10.2); Hemolysis Index 1
[2020-11-22 06:15] LABS: BUN/Creatinine Ratio 10
[2020-11-22] MEDS: VALSARTAN 160MG TAB PO SCH (10:13)
[2020-11-22] MEDS: FAMOTIDINE 20 MG/2 ML INJ IV SCH (10:13)
[2020-11-22] MEDS: METOCLOPRAMIDE 10 MG/2 ML INJ IV PRN (13:00)
--- NOTE | 2020-11-22 13:10 | Progress Note ---
Subjective Date of service: 11/22/20 Interval history: Assessment and plan: --Sepsis Current Visit: Yes Status: Acute Qualifiers: Severe sepsis shock status: without septic shock Plan to address problem: Meets sepsis criteria with tachycardia, leukocytosis and UTI Started on IV antibiotics Decrease ceftriaxone to 1 g daily Blood culture -no growth urine culture positive for gram-negative rods Isolation and sensitivity pending --Pyelonephritis Current Visit: Yes Status: Acute Plan to address problem: Continue IV ceftriaxone ---Gastroenteritis Probably reactionary from pyelonephritis Continue IV hydration Eating good and tolerating diet Will discontinue IV fluids -- Hypokalemia Current Visit: Yes Status: Acute Plan to address problem: Supplemented\ Hypertension Patient denies history of hypertension Blood pressure has been consistently high in spite of receiving valsartan twice daily Add amlodipine Discussed with patient about her blood pressure readings -- DVT prophylaxis Current Visit: Yes Status: Acute Plan to address problem: On heparin and GI prophylaxis History Interval history: Patient seen and examined at bedside this morning She feels better. On IV antibiotics for sepsis secondary to pyelonephritis Labs reviewed-still has leukocytosis. Awaiting a.m. labs 11/22/20 patient is alert and oriented and offers no specific complaints and feels good No complaints Tolerating p.o. diet well She denies any history of hypertension Lab results reviewed Hospitalist Physical - Physical exam Narrative exam: VITAL SIGNS: Reviewed. GENERAL: Awake HEAD: No signs of head trauma. EYES: Pupils are equal. Extraocular motions intact. MOUTH: Oropharynx is normal. NECK: No adenopathy, no JVD. CHEST: Clear to auscultation CARDIAC: Regular rate and rhythm ABDOMEN: Soft, nontender MUSCULOSKELETAL: No edema NEUROLOGIC EXAM: Alert and oriented x3. No focal neurologic deficits SKIN: No obvious lesions Objective - Constitutional Vitals: Vital Signs - 12hr 11/22/20 05:04 Temperature 98.0 F Pulse Rate 106 H Respiratory 18 Rate Blood Pressure 163/95 O2 Sat by Pulse 97 Oximetry - Labs CBC & Chem 7: 11/22/20 04:38 11/22/20 04:38 Labs: Abnormal lab results 11/22/20 11/22/20 Range/Units 04:38 04:38 WBC 12.6 H (4.5-11.0) K/mm3 [place] % (Auto) 12.5 H (0.0-7.3) % [place] # (Auto) 1.6 H (0.0-0.8) K/mm3 Seg Neutrophils # 7.9 H (1.8-7.7) K/mm3 Sodium 136 L (137-145) mmol/L Albumin 3.3 L (3.9-5) g/dL
[2020-11-22] MEDS: cefTRIAXone/NS 2 GM/100 ML 2 GM/100 ML BAG IV SCH (14:42)
[2020-11-22] MEDS: amLODIPine 5 MG TAB PO SCH (14:42)
[2020-11-22] MEDS: oxyCODONE /ACETAMINOPHEN 5-325MG TAB PO PRN (14:42)
[2020-11-23 09:11] LABS: Basophils # (Auto) 0.1 K/mm3 (0.0-0.1); Basophils % (Auto) 0.6 % (0.0-1.8); Eosinophils # (Auto) 0.3 K/mm3 (0.0-0.4); Hematocrit 35.8 % (30.3-42.9); Hemoglobin 12.5 gm/dl (10.1-14.3); Lymphocytes # (Auto) 2.9 K/mm3 (1.2-5.4); Lymphocytes % (Auto) 22.1 % (13.4-35.0); Mean Corpuscular HGB Conc 35 % (30-34); Mean Corpuscular Volume 90 fl (79-97); Monocytes # (Auto) 1.2 K/mm3 (0.0-0.8); Monocytes % (Auto) 9.5 % (0.0-7.3); Platelet Count 362 K/mm3 (140-440); Red Cell Distribution Width 14.7 % (13.2-15.2)
[2020-11-23 09:27] VITALS: BP 130/71
[2020-11-23 09:32] LABS: Alanine Aminotransferase 16 units/L (7-56); Albumin 3.5 g/dL (3.9-5); Blood Urea Nitrogen 7 mg/dL (7-17); Calcium 9.2 mg/dL (8.4-10.2); Hemolysis Index 2
[2020-11-23 09:35] LABS: BUN/Creatinine Ratio 10
[2020-11-23] MEDS: amLODIPine 5 MG TAB PO SCH (10:19)
[2020-11-23] MEDS: VALSARTAN 160MG TAB PO SCH (10:20)
[2020-11-23] MEDS: FAMOTIDINE 20 MG/2 ML INJ IV SCH (10:22)
[2020-11-23] MEDS ORDERED: FAMOTIDINE 20 MG TAB PO SCH (11:00)
--- NOTE | 2020-11-23 11:08 | Discharge Summary ---
Providers - Providers Date of Admission: 11/20/20 15:46 Date of discharge: 11/23/20 Attending physician: FRANCIS FLORES Primary care physician: RN NURSERY Hospitalization Condition: Fair Hospital course: Patient is doing well. No complaints. Afebrile. Denies any flank pain. She is medically stable for discharge Instructed the patient to follow-up with her PCP in 5 days and also follow-up with ID as the urine culture results are positive for gram-negative rods but isolation and sensitivity still pending. However her she is afebrile and her white count is rapidly improving and she is medically stable. She also has newly diagnosed hypertension and blood pressure was stable at the time of discharge Disposition: [id number] TO HOME OR SELFCARE Time spent for discharge: 38 min - Discharge Diagnoses (1) Pyelonephritis Status: Acute Comment: CT of the abdomen and pelvis results reviewed and consistent with mild right acute pyelonephritis (2) Hypokalemia Status: Acute Comment: Improved (3) Sepsis Status: Acute Qualifiers: Severe sepsis shock status: without septic shock Comment: Based on leukocytosis, UTI with gram-negative rods, tachycardia and tachypnea (4) UTI (urinary tract infection) Status: Acute Qualifiers: Urinary tract infection type: acute cystitis Hematuria presence: without hematuria Qualified Code(s): N30.00 - Acute cystitis without hematuria Comment: Urine cultures positive for gram-negative rods. Isolation and sensitivity pending Patient needs to follow-up with PCP and ID within 4 to 5 days Core Measure Documentation - Palliative Care Palliative Care/ Comfort Measures: Not Applicable - Core Measures Any of the following diagnoses?: none Exam - Constitutional Vitals: Temp Pulse Resp BP Pulse Ox 98.7 F 93 H 18 130/71 100 11/23/20 08:16 11/23/20 08:16 11/22/20 23:04 11/23/20 08:16 11/23/20 08:16 General appearance: Present: no acute distress, well-nourished - EENT Eyes: Present: PERRL, EOM intact ENT: hearing intact, clear oral mucosa - Neck Neck: Present: supple, normal ROM - Respiratory Respiratory effort: normal Respiratory: bilateral: CTA - Cardiovascular Rhythm: regular Heart Sounds: Present: S1 & S2 - Extremities Extremities: No edema - Abdominal General gastrointestinal: Present: soft, non-tender - Rectal Rectal Exam: deferred - Integumentary Integumentary: Present: clear - Musculoskeletal Musculoskeletal: strength equal bilaterally - Psychiatric Psychiatric: appropriate mood/affect - Neurologic Neurologic: no focal deficits Plan Activity: no restrictions Weight Bearing Status: Full Weight Bearing Diet: regular, low fat, low salt Additional Instructions: Needs to follow-up with ID and PCP and obtain urine culture report which is pending at this time Follow up with: PRIMARY CAREMD [Primary Care Provider] - 3-5 Days ÓSCAR VASQUEZ MD [Staff Physician] - 7 Days Prescriptions: amLODIPine 5 mg PO QDAY #30 tablet Valsartan [Diovan] 160 mg PO BID #60 tablet levoFLOXacin [Levaquin TAB] 500 mg PO QDAY #10 tablet Famotidine [Pepcid] 20 mg PO BID #60 tablet
== END 2020-11-23 12:30 | disposition home or self-care (01) | DRG 872 ==
LOC: ED 00:56 → 3A 15:46 → OBSVTOIN 15:46 → 4A 21:39
PROVIDERS: ADMIT Internal Medicine; ATTEND Internal Medicine
DX: A41.9 Sepsis, unspecified organism (principal); N12 Tubulo-interstitial nephritis, not specified as acute or chronic; D25.9 Leiomyoma of uterus, unspecified; E87.6 Hypokalemia; Z98.51 Tubal ligation status; F17.200 Nicotine dependence, unspecified, uncomplicated; I10 Essential (primary) hypertension; K52.9 Noninfective gastroenteritis and colitis, unspecified; R65.20 Severe sepsis without septic shock
CPT/HCPCS: 36415; 74177; 80048; 80053; 80076; 81001; 82140; 83690; 84703; 85007; 85025; 85027; 87040; 87086; G0378; C9113; J0360; J0696; J2270; J2405; J2765; J7030; Q0162; Q9967